=== PATIENT | female | born 1965 | race Caucasian/White ===

== ENCOUNTER 2018-09-21 11:51 | Emergency (ER) | payer MEDICAID ==
[~2018-09-21] VITALS: Ht 162.6 cm; Wt 120.0 kg
[~2018-09-21 11:51] MED LIST: DIPH1TAB PO
[2018-09-21] MEDS ORDERED: aspirin 81mg tab.chew PO ONE (12:10)
[2018-09-21 12:46] LABS: BASOPHILS % (AUTO) 0.3 % (0-1); EOSINOPHILS # (AUTO) 0.2 X10'3 (0-0.9); HEMATOCRIT 37.3 % (35.0-45.0); HEMOGLOBIN 12.6 g/dl (12.0-16.0); LYMPHOCYTES # (AUTO) 1.7 X10'3 (1.1-4.8); LYMPHOCYTES % (AUTO) 21.6 % (21-51); MEAN CORPUSCULAR HEMOGLOBIN 31.7 PG (27.0-31.0); MEAN CORPUSCULAR HGB CONC 33.8 g/dL (33.0-36.5); MEAN CORPUSCULAR VOLUME 93.7 FL (78-98); MEAN PLATELET VOLUME 8.9 FL (7.4-10.4); MONOCYTES # (AUTO) 0.5 X10'3 (0-0.9); MONOCYTES % (AUTO) 6.8 % (2-12); NEUTROPHILS # (AUTO) 5.6 X10'3 (1.8-7.7); NEUTROPHILS % (AUTO) 69.3 % (42-75); PLATELET COUNT 173 X10'3 (140-440); RED BLOOD COUNT 3.98 X10'6 (4.20-5.60); RED CELL DISTRIBUTION WIDTH 13.5 % (11.5-14.5); WHITE BLOOD COUNT 8.1 X10'3 (4.5-11.0)
[2018-09-21 13:05] LABS: ALANINE AMINOTRANSFERASE 36 U/L (12-78); ALBUMIN 2.8 G/DL (3.4-5.0); ALBUMIN/GLOBULIN RATIO 0.7 (1.1-1.5); ALKALINE PHOSPHATASE 254 IU/L (46-116); ANION GAP 8 (8-16); ASPARTATE AMINO TRANSFERASE 26 U/L (10-37); BILIRUBIN,TOTAL 0.4 MG/DL (0.1-1.0); BLOOD UREA NITROGEN 29 MG/DL (7-18); BUN/CREATININE RATIO 25.7 (6.6-38.0); CALCIUM 8.9 MG/DL (8.5-10.1); CHLORIDE 105 MMOL/L (99-107); CREATININE 1.13 MG/DL (0.40-0.90); GLUCOSE 342 MG/DL (70-104); POTASSIUM 4.6 MMOL/L (3.5-5.1); SODIUM 139 MMOL/L (135-145); TOTAL PROTEIN 6.9 G/DL (6.4-8.2); eGFR 50 ML/MIN
[2018-09-21 13:12] LABS: MAGNESIUM 1.9 MG/DL (1.5-2.4)
[2018-09-21] MEDS ORDERED: FURO-150 PO (14:23)
[2018-09-21] MEDS ORDERED: POTA10TA19 PO (14:23)
[2018-09-21 14:44] VITALS: BP 163/88
== END 2018-09-21 14:38 | disposition home or self-care (01) ==
LOC: ER 11:52
DX: R60.0 Localized edema (principal); R06.02 Shortness of breath; R06.2 Wheezing; Z79.899 Other long term (current) drug therapy
CPT/HCPCS: 36415; 71045; 80053; 83735; 83880; 84484; 85025; 99284

== ENCOUNTER 2019-01-19 15:41 | Emergency (ER) | payer MEDICAID ==
[~2019-01-19] VITALS: Ht 165.1 cm; Wt 105.3 kg
[2019-01-19] MEDS ORDERED: acetaminophen 325mg tablet PO ONE (16:00)
[2019-01-19] MEDS ORDERED: proCHLORperazine 10 MG/2 ml inj IV ONE (16:00)
[2019-01-19] MEDS ORDERED: normal saline 1000ml 1,000 ML IV ONE (16:00)
[2019-01-19] MEDS ORDERED: ketorolac trometh. 30mg/ml inj. IV ONE (16:00)
[2019-01-19] MEDS ORDERED: PRED20TA PO (17:20)
[2019-01-19] MEDS ORDERED: predniSONE 20 mg tablet PO ONE (17:20)
[2019-01-19 17:32] VITALS: BP 149/77
[2019-02-02] MEDS ORDERED: GABA600T13 PO (14:52)
[2019-02-02] MEDS ORDERED: LIRA0.6P2 SUBCUT (14:52)
[2019-02-02] MEDS ORDERED: LOSA50TA3 PO (14:52)
[2019-02-02] MEDS ORDERED: ATOR40TA PO (14:52)
[2019-02-02] MEDS ORDERED: LANTUS SQ (14:52)
[2019-02-02] MEDS ORDERED: FURO80TA87 PO (14:52)
[2019-02-02] MEDS ORDERED: PRED10TA23 PO (14:52)
== END 2019-01-19 17:34 | disposition home or self-care (01) ==
LOC: ER 15:42
DX: R51 Headache (principal); Z79.899 Other long term (current) drug therapy
CPT/HCPCS: 36415; 85651; 96374; 96375; 99283; J0780; J1885; J7030; J7512

== ENCOUNTER 2019-02-04 06:58 | Day surgery (SDC) | payer MEDICAID ==
[2019-02-02 15:04] LABS: BASOPHILS % (AUTO) 0.1 % (0-1); EOSINOPHILS % (AUTO) 0.4 % (0-6); LYMPHOCYTES # (AUTO) 1.9 X10'3 (1.1-4.8); LYMPHOCYTES % (AUTO) 15.6 % (21-51); MEAN CORPUSCULAR HEMOGLOBIN 30.1 PG (27.0-31.0); MEAN CORPUSCULAR HGB CONC 33.2 g/dL (33.0-36.5); MEAN CORPUSCULAR VOLUME 90.5 FL (78-98); MEAN PLATELET VOLUME 8.8 FL (7.4-10.4); MONOCYTES # (AUTO) 0.5 X10'3 (0-0.9); MONOCYTES % (AUTO) 4.3 % (2-12); NEUTROPHILS # (AUTO) 9.7 X10'3 (1.8-7.7); NEUTROPHILS % (AUTO) 79.6 % (42-75); PRE OP PLATELET COUNT 249 X10'3 (140-440); RED BLOOD COUNT 4.65 X10'6 (4.20-5.60); RED CELL DISTRIBUTION WIDTH 13.5 % (11.5-14.5)
[2019-02-02 15:04] LABS: CLARITY,URINE SLIGHTLY CLOUDY (Clear); COLOR,URINE YELLOW (Yellow); GLUCOSE, URINE >=1000 mg/dl (Neg); KETONES,URINE NEGATIVE (Neg); LEUKOCYTE ESTERASE ,URINE NEGATIVE (Neg); NITRITES, URINE NEGATIVE (Neg); OCCULT BLOOD,URINE LARGE (Neg); PH,URINE 5.5 (4.8-8.0); PROTEIN,URINE 100 mg/dl (Neg); UA COLLECTION TYPE CLN CATCH MIDSTREAM; UROBILINOGEN,URINE 0.2 E.U/dL (0.2-1.0)
[2019-02-02 15:10] LABS: BACTERIA,URINE 4+ /HPF (Neg); RBC,URINE 20-50 /HPF (0-2); SQUAMOUS EPITHELIAL CELL,UR FEW /LPF (FEW)
[2019-02-02 15:11] LABS: WBC CLUMPS,URINE MODERATE /HPF (NEGATIVE)
[2019-02-02 15:17] LABS: ALBUMIN 2.3 G/DL (3.4-5.0); ALBUMIN/GLOBULIN RATIO 0.6 (1.1-1.5); ALKALINE PHOSPHATASE 237 IU/L (46-116); BLOOD UREA NITROGEN 50 MG/DL (7-18); BUN/CREATININE RATIO 49.5 (6.6-38.0); CALCIUM 8.9 MG/DL (8.5-10.1); CHLORIDE 107 MMOL/L (99-107); CREATININE 1.01 MG/DL (0.40-0.90); HEMOGLOBIN A1C 10.3 % (4.5-6.2); PRE OP ALT 42 U/L (30-65); PRE OP ANION GAP 7 (8-16); PRE OP AST 22 U/L (10-37); PRE OP BILIRUB, TOTAL 0.4 MG/DL (0.0-1.0); PRE OP POTASSIUM 4.6 MMOL/L (3.4-5.1); PRE OP SODIUM 139 MMOL/L (135-145); TOTAL CARBON DIOXIDE 25.2 MMOL/L (24-32); TOTAL PROTEIN 6.2 G/DL (6.4-8.2); eGFR 57 ML/MIN
[2019-02-02 15:18] LABS: PRE OP GLUCOSE 420 MG/DL (70-104)
[~2019-02-04] VITALS: Ht 165.1 cm; Wt 119.2 kg
[2019-02-04] VITALS (8 sets, daily range): BP systolic 98–118; BP diastolic 58–73
[~2019-02-04 06:58] MED LIST changes: +ATOR40TA PO; -DIPH1TAB PO; +FURO80TA87 PO; +GABA600T13 PO; +LANTUS SQ; +LIRA0.6P2 SUBCUT; +LOSA50TA3 PO; +PRED10TA23 PO; +famotidine 20mg tablet PO ONE; +ringers solution, lacted 1,000 ML IV SCH
[2019-02-04] MEDS ORDERED: insulin glargine (Lantus) pen - multi-dose SQ ONE (07:25)
[2019-02-04] MEDS ORDERED: ringers solution, lacted 1,000 ML IV SCH (07:49)
[2019-02-04] MEDS ORDERED: morphine 4 MG/ML inj SYRINge IV PRN ×2 (07:50)
[2019-02-04] MEDS ORDERED: ondansetron/PF 4mg/2ml inj IV PRN (07:50)
[2019-02-04] MEDS ORDERED: proCHLORperazine 10 MG/2 ml inj IV PRN (07:50)
[2019-02-04] MEDS ORDERED: meperidine/PF 25mg/ml syringe IV PRN ×3 (07:50)
[2019-02-04] MEDS ORDERED: cefazolin/dext.iso 2gm/100 ML IV ONE (09:15)
[2019-02-04] MEDS ORDERED: LIDOcaine 1% 30ml preserv. free vial ONE (11:08)
[2019-02-04] MEDS ORDERED: epiNEPHrine 1 mg/ml inj ONE (11:08)
[2019-02-04] MEDS ORDERED: fentaNYL/PF 50MCG/1 ML 2ML syringe ONE (11:27)
[2019-02-04] MEDS ORDERED: MIDAZolam 5mg/5ml vial ONE (11:27)
--- NOTE | 2019-02-04 12:02 | NUR ---
Received from OR via [facility], accompanied by Anesthesiologist CARLOS and report given by Anesthesiolgist. Pt alert and responsive, no pain, VS stable, NC at 3L, pt resting comfortably, no drainage, incision to left tempral not drainingm, open to air, no sutures, dermabond.
--- NOTE | 2019-02-04 13:52 | NUR ---
Pt discharged by wheelchair to vehicle with son without incident. Pt alert and responsive, states understanding to all DC information. IV dc'd. Temporal site remains CDI. Belongings on or with patient. Hammer Beside brought pain meds to patient whom signed for receipt. Pt knows to follow up with surgeon in one week. No other issues stable for discharge.
== END 2019-02-04 13:52 | disposition home or self-care (01) ==
LOC: PAS 06:58
PROVIDERS: ATTEND Surgery
DX: G44.89 Other headache syndrome (principal); I10 Essential (primary) hypertension; E11.40 Type 2 diabetes mellitus with diabetic neuropathy, unspecified; E66.01 Morbid (severe) obesity due to excess calories; Z68.41 Body mass index [BMI] 40.0-44.9, adult; Z87.891 Personal history of nicotine dependence; Z85.43 Personal history of malignant neoplasm of ovary; Z86.14 Personal history of Methicillin resistant Staphylococcus aureus infection; Z79.899 Other long term (current) drug therapy; Z79.4 Long term (current) use of insulin; Z82.49 Family history of ischemic heart disease and other diseases of the circulatory system
CPT/HCPCS: 36415; 37609; 80053; 81001; 82948; 83036; 85025; 87077; 87088; 87186; J0171; J2001; J2250; J3010; J7120; A4215; A4618; A6258; A7000; J1815

== ENCOUNTER 2019-03-10 06:52 | Inpatient (IN) | payer MEDICAID ==
[~2019-03-10] VITALS: Ht 165.1 cm; Wt 118.0 kg
[~2019-03-10 06:52] MED LIST changes: -famotidine 20mg tablet PO ONE; -ringers solution, lacted 1,000 ML IV SCH
[2019-03-10] MEDS ORDERED: morphine 4 MG/ML inj SYRINge IV PRN (07:15)
[2019-03-10] MEDS ORDERED: normal saline 1000ML IV soln IVB ONE ×2 (07:15→07:45)
[2019-03-10] MEDS ORDERED: ondansetron/PF 4mg/2ml inj IV ONE (07:15)
[2019-03-10 07:38] LABS: BASOPHILS % (AUTO) 0.3 % (0-1); EOSINOPHILS # (AUTO) 0.1 X10'3 (0-0.9); EOSINOPHILS % (AUTO) 0.6 % (0-6); HEMATOCRIT 36.8 % (35.0-45.0); HEMOGLOBIN 12.1 g/dl (12.0-16.0); LYMPHOCYTES # (AUTO) 2.2 X10'3 (1.1-4.8); MEAN CORPUSCULAR HEMOGLOBIN 29.9 PG (27.0-31.0); MEAN CORPUSCULAR HGB CONC 32.8 g/dL (33.0-36.5); MEAN PLATELET VOLUME 9.4 FL (7.4-10.4); MONOCYTES # (AUTO) 0.9 X10'3 (0-0.9); MONOCYTES % (AUTO) 6.5 % (2-12); NEUTROPHILS # (AUTO) 11.3 X10'3 (1.8-7.7); NEUTROPHILS % (AUTO) 77.6 % (42-75); PLATELET COUNT 235 X10'3 (140-440); RED BLOOD COUNT 4.05 X10'6 (4.20-5.60); RED CELL DISTRIBUTION WIDTH 14.7 % (11.5-14.5); WHITE BLOOD COUNT 14.5 X10'3 (4.5-11.0)
[2019-03-10] MEDS ORDERED: fentaNYL/PF 50MCG/1 ML 2ML syringe IV ONE (07:45)
[2019-03-10 07:55] LABS: ALANINE AMINOTRANSFERASE 15 U/L (12-78); ALBUMIN 2.2 G/DL (3.4-5.0); ALBUMIN/GLOBULIN RATIO 0.5 (1.1-1.5); ALKALINE PHOSPHATASE 157 IU/L (46-116); ANION GAP 11 (8-16); ASPARTATE AMINO TRANSFERASE 12 U/L (10-37); BILIRUBIN,TOTAL 0.5 MG/DL (0.1-1.0); BLOOD UREA NITROGEN 37 MG/DL (7-18); CALCIUM 8.8 MG/DL (8.5-10.1); CHLORIDE 101 MMOL/L (99-107); CREATININE 1.61 MG/DL (0.40-0.90); GLUCOSE 434 MG/DL (70-104); LIPASE 115 U/L (73-393); POTASSIUM 4.6 MMOL/L (3.5-5.1); SODIUM 135 MMOL/L (135-145); TOTAL CARBON DIOXIDE 22.7 MMOL/L (24-32); eGFR 33 ML/MIN
[2019-03-10] MEDS ORDERED: piperacillin/tazo 3.375gm/50ml 50 ML IV ONE (08:55)
[2019-03-10 09:00] LABS: CLARITY,URINE TURBID (Clear); COLOR,URINE YELLOW (Yellow); GLUCOSE, URINE >=1000 mg/dl (Neg); KETONES,URINE NEGATIVE (Neg); LEUKOCYTE ESTERASE ,URINE NEGATIVE (Neg); NITRITES, URINE NEGATIVE (Neg); OCCULT BLOOD,URINE LARGE (Neg); PH,URINE 5.5 (4.8-8.0); PROTEIN,URINE 100 mg/dl (Neg); UA COLLECTION TYPE CLN CATCH MIDSTREAM; UROBILINOGEN,URINE 0.2 E.U/dL (0.2-1.0)
[2019-03-10 09:01] LABS: URINE HCG NEGATIVE (NEG)
[2019-03-10 09:06] LABS: SQUAMOUS EPITHELIAL CELL,UR MANY /LPF (FEW)
[2019-03-10 09:07] LABS: BACTERIA,URINE 3+ /HPF (Neg); WBC CLUMPS,URINE MANY /HPF (NEGATIVE); WBC,URINE TNTC /HPF (0-4)
[2019-03-10] MEDS ORDERED: acetaminophen 325mg tablet PO PRN ×2 (09:35)
[2019-03-10] MEDS ORDERED: mag hydrox/Alum hydrox/simeth 30ml oral suspension PO PRN (09:35)
[2019-03-10] MEDS ORDERED: magnesium 4gm in 100ml NS 100 ML IV PRN (09:35)
[2019-03-10] MEDS ORDERED: potassium CL 10mEq/100ml bag 100 ML IV PRN ×2 (09:35)
[2019-03-10] MEDS ORDERED: morphine 2 MG/ML inj. syringe IV PRN (09:35)
[2019-03-10] MEDS ORDERED: magnesium 2GM in 50ml NS 50 ML IV PRN (09:35)
[2019-03-10] MEDS ORDERED: magnesium hydroxide 30ml (MOM) UD suspension PO PRN (09:35)
[2019-03-10] MEDS ORDERED: magnesium Cl slow-release 64mg tablet PO PRN (09:35)
[2019-03-10] MEDS ORDERED: HYDROcodone/acetaminophen 5mg/325mg tablet PO PRN (09:35)
[2019-03-10] MEDS ORDERED: potassium Cl 20 mEq SR tablet PO PRN ×2 (09:35)
[2019-03-10] MEDS: normal saline 1000ml 1,000 ML IV SCH ×2 (10:51→19:24)
[2019-03-10] MEDS ORDERED: diatrozoate meglu/diatrozoate sod (37% iodine) 120ML oral solution PO SCH (12:10)
--- NOTE | 2019-03-10 12:35 | NUR ---
Received report and patient visualized on floor as I was going to lunch. Gloria will cover patient while on lunch.
[2019-03-10 12:45] VITALS: BP_SYST 104; BP_SYST 122; BP_DIAS 53; BP_DIAS 70
[2019-03-10] MEDS ORDERED: dextrose 50%-water 50ml dispensing syringe IV PRN ×2 (12:55)
[2019-03-10] MEDS ORDERED: glucagon, human recombinant 1mg kit SUBCUT PRN (12:55)
[2019-03-10] MEDS ORDERED: dextrose ORAL solution 15 GM/59 ML bottle PO PRN ×2 (12:55)
[2019-03-10] MEDS ORDERED: MESSAGE TO PHARMACY PO ONE (12:55)
--- NOTE | 2019-03-10 13:10 | NUR ---
Dr. Murillo is here to see patient and will continue to follow patient's care. Will continue to monitor.
[2019-03-10] MEDS: morphine 2 MG/ML inj. syringe IV PRN ×2 (13:23→17:42)
[2019-03-10] MEDS: insulin Lispro (HumaLOG) vial - multi-dose SQ SCH ×2 (13:28→18:44)
[2019-03-10] MEDS: diatr meglu/diatrizoate 30ml oral sol.-(3 dose) bottle PO SCH ×3 (13:37→15:14)
[2019-03-10] MEDS ORDERED: hydrALAZINE 20mg/ml inj. IV PRN (13:50)
[2019-03-10] MEDS ORDERED: ATOR20TA PO (14:04)
[2019-03-10] MEDS: ondansetron/PF 4mg/2ml inj IV PRN (14:39)
[2019-03-10] MEDS: piperacillin/tazo 3.375gm/50ml 50 ML IV SCH (16:19)
--- NOTE | 2019-03-10 17:30 | NUR ---
Dr. Darby called to request that I call Dr. Murillo to read results which I attempted, Read first line and then he stated that he still would like upper GI. Then attempted to read more and he said the first step would be an upper GI. Notified Dr. Darby of conversation who stated that Dr. Haley will do EGD tomorrow afternoon, will keep NPO until then. Will continue to monitor.
--- NOTE | 2019-03-10 18:30 | NUR ---
Problems reprioritized. Patient report given, questions answered & plan of care reviewed with Prudence RN. Patient resting in bed, denies needs
--- NOTE | 2019-03-10 18:48 | NUR ---
Patient in room [facility]. I have received report from Ernestine SHEPPARD and had the opportunity to ask questions and assume patient care. The patient is resting and denies having pain.
[2019-03-10 19:00] VITALS: BP 98/47
[2019-03-10] MEDS: insulin glargine (Lantus) pen - multi-dose SQ SCH (22:36)
[2019-03-11] VITALS (16 sets, daily range): BP systolic 97–138; BP diastolic 45–82
[2019-03-11] MEDS: piperacillin/tazo 3.375gm/50ml 50 ML IV SCH ×3 (00:42→16:55)
--- NOTE | 2019-03-11 01:19 | NUR ---
Attempted to bladder scan patient and she has refused to get up to the toilet. The bladder has 307 ml of urine and she denies having any discomfort. There is an order to have FC placed in if patient has greater that 200ml. Patient refused to have a FC put in and charge nurse was notified. Patient educated the risks of having a full bladder.
[2019-03-11] MEDS: normal saline 1000ml 1,000 ML IV SCH ×4 (02:04→22:08)
--- NOTE | 2019-03-11 04:15 | NUR ---
Patient is still refusing to get up to the toilet to void. Attempted to place a FC per doctors order and she is non compliant with the plan.
[2019-03-11 05:28] LABS: BASOPHILS # (AUTO) 0.1 X10'3 (0-0.2); BASOPHILS % (AUTO) 0.4 % (0-1); EOSINOPHILS # (AUTO) 0.3 X10'3 (0-0.9); EOSINOPHILS % (AUTO) 2.4 % (0-6); HEMATOCRIT 30.2 % (35.0-45.0); LYMPHOCYTES # (AUTO) 3.1 X10'3 (1.1-4.8); LYMPHOCYTES % (AUTO) 22.1 % (21-51); MEAN CORPUSCULAR HEMOGLOBIN 30.6 PG (27.0-31.0); MEAN CORPUSCULAR HGB CONC 33.1 g/dL (33.0-36.5); MEAN CORPUSCULAR VOLUME 92.5 FL (78-98); MEAN PLATELET VOLUME 9.3 FL (7.4-10.4); MONOCYTES # (AUTO) 1.1 X10'3 (0-0.9); MONOCYTES % (AUTO) 7.6 % (2-12); NEUTROPHILS # (AUTO) 9.5 X10'3 (1.8-7.7); NEUTROPHILS % (AUTO) 67.5 % (42-75); PLATELET COUNT 180 X10'3 (140-440); RED BLOOD COUNT 3.26 X10'6 (4.20-5.60); RED CELL DISTRIBUTION WIDTH 14.1 % (11.5-14.5); WHITE BLOOD COUNT 14.1 X10'3 (4.5-11.0)
[2019-03-11 05:44] LABS: ALBUMIN 1.8 G/DL (3.4-5.0); ANION GAP 7 (8-16); BLOOD UREA NITROGEN 35 MG/DL (7-18); BUN/CREATININE RATIO 25.7 (6.6-38.0); CALCIUM 7.8 MG/DL (8.5-10.1); CHLORIDE 109 MMOL/L (99-107); CREATININE 1.36 MG/DL (0.40-0.90); GLUCOSE 239 MG/DL (70-104); MAGNESIUM 1.7 MG/DL (1.5-2.4); POTASSIUM 4.1 MMOL/L (3.5-5.1); SODIUM 141 MMOL/L (135-145); TOTAL CARBON DIOXIDE 25.4 MMOL/L (24-32); eGFR 41 ML/MIN
--- NOTE | 2019-03-11 06:27 | NUR ---
Patient in room [facility] 357. I have received report from VALARIE Fitzgerald and had the opportunity to ask questions and assume patient care.
--- NOTE | 2019-03-11 06:33 | NUR ---
Problems reprioritized. Patient report given, questions answered & plan of care reviewed with Emerald SHEPPARD.
[2019-03-11] MEDS: K and/or MAG REPLACEMENT MC SCH (07:00)
[2019-03-11] MEDS: insulin Lispro (HumaLOG) vial - multi-dose SQ SCH ×3 (09:01→19:26)
[2019-03-11] MEDS ORDERED: fentaNYL/PF 50MCG/1 ML 2ML syringe ONE (13:28)
[2019-03-11] MEDS ORDERED: MIDAZolam 5mg/5ml vial ONE (13:28)
[2019-03-11] MEDS ORDERED: LIDOcaine Viscous 15ml cup ONE (13:28)
[2019-03-11] MEDS ORDERED: pantoprazole 40 MG vial IV ONE (13:45)
--- NOTE | 2019-03-11 14:17 | NUR ---
Patient to GI lab via wheelchair with x1 staff. Patient alert and oriented at this time.
--- NOTE | 2019-03-11 16:11 | NUR ---
DM Consult: Pt admit w/ nausea/vomiting and abdominal pain. CT shows pneumobilia w/ r/o hepatoenteric fistula in addition to DX UTI and LINO per MD note. Remains NPO at this time. LBM 03/09. Pt seen by RD for written/verbal DM ed w/ RD contact information provided. Pt reports taking metformin and victoza for GLU coverage and checks GLU TID. Pt home med list shows Lantus and no metformin. Currently in EMR shows T1DM but all prior admits show pt T2DM which is likely more accurate given home meds. RD encouraged attending CDE course, establishing w/ slitter and rewinder if able, and for pt to talk w/ PCP regarding meal replacement coverage. SHAJI d/w RN regarding MD opinion on possibility of gastroparesis given pt hx/A1C. Will monitor for diet advancement, additional GI DX, and diet tolerance once PO. Rec: 1. advance diet per MD to carb controlled 2. IF gastroparesis DX per MD; low-residue diet addition once PO and pt will need diet ed 3. routine bowel care 4. wt per rx Addendum: 03/11/19 at [address] Amended: Links added.
--- NOTE | 2019-03-11 16:15 | NUR ---
Patient back to room from GI. Patient is in no apparent distress at this time.
--- NOTE | 2019-03-11 18:18 | NUR ---
Problems reprioritized. Patient report given, questions answered & plan of care reviewed with VALARIE Fitzgerald.
--- NOTE | 2019-03-11 18:22 | NUR ---
Patient in room [facility] 357. I have received report from Emerald SHEPPARD and had the opportunity to ask questions and assume patient care.
[2019-03-11] MEDS: morphine 2 MG/ML inj. syringe IV PRN (19:17)
[2019-03-11] MEDS: lactobacillus rhamnosus 10,000 MMU CELLS/CAPSULE PO SCH (19:31)
[2019-03-11] MEDS: pantoprazole 40MG/NS 100ML BAG 100 ML IV SCH (22:08)
[2019-03-11] MEDS: insulin glargine (Lantus) pen - multi-dose SQ SCH (22:16)
[2019-03-12] VITALS: BP 111/52
[2019-03-12] MEDS: piperacillin/tazo 3.375gm/50ml 50 ML IV SCH ×4 (01:06→23:59)
[2019-03-12] MEDS: pantoprazole 40MG/NS 100ML BAG 100 ML IV SCH ×5 (02:08→21:00)
[2019-03-12 05:21] LABS: BASOPHILS % (AUTO) 0.5 % (0-1); EOSINOPHILS # (AUTO) 0.4 X10'3 (0-0.9); EOSINOPHILS % (AUTO) 4.3 % (0-6); HEMATOCRIT 29.6 % (35.0-45.0); HEMOGLOBIN 9.9 g/dl (12.0-16.0); LYMPHOCYTES # (AUTO) 2.5 X10'3 (1.1-4.8); LYMPHOCYTES % (AUTO) 27.7 % (21-51); MEAN CORPUSCULAR HEMOGLOBIN 30.6 PG (27.0-31.0); MEAN CORPUSCULAR HGB CONC 33.6 g/dL (33.0-36.5); MEAN CORPUSCULAR VOLUME 91.1 FL (78-98); MEAN PLATELET VOLUME 9.3 FL (7.4-10.4); MONOCYTES # (AUTO) 0.7 X10'3 (0-0.9); MONOCYTES % (AUTO) 7.2 % (2-12); NEUTROPHILS # (AUTO) 5.4 X10'3 (1.8-7.7); NEUTROPHILS % (AUTO) 60.3 % (42-75); PLATELET COUNT 176 X10'3 (140-440); RED BLOOD COUNT 3.25 X10'6 (4.20-5.60); RED CELL DISTRIBUTION WIDTH 14.5 % (11.5-14.5)
[2019-03-12 05:49] LABS: ALBUMIN 1.8 G/DL (3.4-5.0); ANION GAP 10 (8-16); BLOOD UREA NITROGEN 25 MG/DL (7-18); BUN/CREATININE RATIO 22.9 (6.6-38.0); CALCIUM 7.9 MG/DL (8.5-10.1); CHLORIDE 113 MMOL/L (99-107); CREATININE 1.09 MG/DL (0.40-0.90); GLUCOSE 164 MG/DL (70-104); MAGNESIUM 1.9 MG/DL (1.5-2.4); POTASSIUM 3.8 MMOL/L (3.5-5.1); SODIUM 145 MMOL/L (135-145); TOTAL CARBON DIOXIDE 22.3 MMOL/L (24-32); eGFR 52 ML/MIN
[2019-03-12] MEDS: morphine 2 MG/ML inj. syringe IV PRN ×3 (05:50→23:57)
--- NOTE | 2019-03-12 06:35 | NUR ---
Patient in room [facility] 357. I have received report from VALARIE Fitzgerald and had the opportunity to ask questions and assume patient care.
--- NOTE | 2019-03-12 06:36 | NUR ---
Problems reprioritized. Patient report given, questions answered & plan of care reviewed with Emerald SHEPPARD. Patient is having discomfort with stomach pain and is awaiting to be tranported to another hospital.
[2019-03-12 07:00] VITALS: BP 134/63
[2019-03-12] MEDS: K and/or MAG REPLACEMENT MC SCH (07:18)
[2019-03-12] MEDS: lactobacillus rhamnosus 10,000 MMU CELLS/CAPSULE PO SCH ×2 (07:29→19:59)
[2019-03-12] MEDS: normal saline 1000ml 1,000 ML IV SCH ×2 (07:50→17:25)
[2019-03-12] MEDS: insulin Lispro (HumaLOG) vial - multi-dose SQ SCH ×2 (07:55→13:24)
[2019-03-12 11:00] VITALS: BP 161/72
[2019-03-12] MEDS: ondansetron/PF 4mg/2ml inj IV PRN (13:26)
--- NOTE | 2019-03-12 17:30 | NUR ---
Student documentation: I have reviewed and agree with all interventions, assessments performed and documented by SN Har[facility].
--- NOTE | 2019-03-12 18:53 | NUR ---
Problems reprioritized. Patient report given, questions answered & plan of care reviewed with VALARIE Mccracken.
[2019-03-12 20:00] VITALS: BP 122/65
[2019-03-12] MEDS: insulin glargine (Lantus) pen - multi-dose SQ SCH (22:11)
[2019-03-13] VITALS: BP 139/70
[2019-03-13] MEDS: pantoprazole 40MG/NS 100ML BAG 100 ML IV SCH ×3 (02:48→11:00)
[2019-03-13] MEDS: normal saline 1000ml 1,000 ML IV SCH (04:16)
[2019-03-13 06:17] LABS: BASOPHILS % (AUTO) 0.5 % (0-1); EOSINOPHILS # (AUTO) 0.4 X10'3 (0-0.9); EOSINOPHILS % (AUTO) 5.7 % (0-6); HEMATOCRIT 29.8 % (35.0-45.0); HEMOGLOBIN 9.8 g/dl (12.0-16.0); LYMPHOCYTES % (AUTO) 32.7 % (21-51); MEAN CORPUSCULAR HEMOGLOBIN 30.6 PG (27.0-31.0); MEAN CORPUSCULAR VOLUME 92.6 FL (78-98); MEAN PLATELET VOLUME 9.3 FL (7.4-10.4); MONOCYTES # (AUTO) 0.5 X10'3 (0-0.9); MONOCYTES % (AUTO) 8.6 % (2-12); NEUTROPHILS # (AUTO) 3.3 X10'3 (1.8-7.7); NEUTROPHILS % (AUTO) 52.5 % (42-75); PLATELET COUNT 162 X10'3 (140-440); RED BLOOD COUNT 3.22 X10'6 (4.20-5.60); RED CELL DISTRIBUTION WIDTH 14.1 % (11.5-14.5); WHITE BLOOD COUNT 6.2 X10'3 (4.5-11.0)
--- NOTE | 2019-03-13 06:30 | NUR ---
Patient in room [facility] 357. I have received report from HORACE SHEPPARD and had the opportunity to ask questions and assume patient care.
[2019-03-13 06:46] LABS: ALBUMIN 1.8 G/DL (3.4-5.0); ANION GAP 14 (8-16); BLOOD UREA NITROGEN 15 MG/DL (7-18); CALCIUM 8.5 MG/DL (8.5-10.1); CHLORIDE 115 MMOL/L (99-107); CREATININE 0.88 MG/DL (0.40-0.90); GLUCOSE 117 MG/DL (70-104); MAGNESIUM 1.9 MG/DL (1.5-2.4); POTASSIUM 3.5 MMOL/L (3.5-5.1); SODIUM 148 MMOL/L (135-145); TOTAL CARBON DIOXIDE 19.3 MMOL/L (24-32); eGFR 67 ML/MIN
[2019-03-13 08:00] VITALS: BP 142/55
[2019-03-13] MEDS: lactobacillus rhamnosus 10,000 MMU CELLS/CAPSULE PO SCH (08:00)
[2019-03-13] MEDS: K and/or MAG REPLACEMENT MC SCH (08:00)
[2019-03-13] MEDS ORDERED: sodium chloride 0.45% 1,000 ML IV SCH (09:15)
[2019-03-13] MEDS: piperacillin/tazo 3.375gm/50ml 50 ML IV SCH ×2 (09:33→16:00)
[2019-03-13 11:00] VITALS: BP 131/80
[2019-03-13] MEDS: morphine 2 MG/ML inj. syringe IV PRN (11:09)
--- NOTE | 2019-03-13 17:56 | NUR ---
Problems reprioritized. Patient report given, questions answered & plan of care reviewed with EARL SHEPPARD.
--- NOTE | 2019-03-13 18:17 | NUR ---
Patient in room [facility] 357. I have received report from VALARIE WELLINGTON and had the opportunity to ask questions and assume patient care. PT IN BED, NO COMPLAINTS. ALERT AND ORIENTED. WAITING FOR TRANSPORT, RN ATTEMPTED TO CALL REPORT X2 UNABLE TO REACH RECEIVING RN AT [facility] [place]. Addendum: 03/13/19 at 1818 by Sid Hidalgo RN Amended: Links added.
[2019-03-13 18:20] VITALS: BP 131/80
--- NOTE | 2019-03-13 18:45 | NUR ---
TRANSFERRING PAPERWORK FAXED TO PER VALARIE WELLINGTON REPORT CALLED TO [facility] [place] . VALARIE FLETCHER. PT IS GOING TO ROOM [id number]. [facility] LEAVING WITH PT NOW ETA ABOUT 3 HRS. PT HAS ALL BELONGINGS PACKED AND READY TO GO. PT IS ALERT AND ORIENTED, VSS Addendum: 03/13/19 at 1858 by Sid Hidalgo RN Amended: Links added.
[2019-03-17 09:01] LABS: OCCULT BLOOD STOOL POSITIVE (Neg)
== END 2019-03-13 18:58 | disposition short-term general hospital (02) | DRG 241 ==
LOC: ER 06:53 → SUR 3N 12:42
PROVIDERS: ADMIT Hospitalist; ATTEND Internal Medicine
PROC: 0DB68ZX Excision of Stomach, Via Natural or Artificial Opening Endoscopic, Diagnostic (ICD-10-PCS; principal; 2019-03-11)
DX: K29.00 Acute gastritis without bleeding (principal); N17.9 Acute kidney failure, unspecified; E11.42 Type 2 diabetes mellitus with diabetic polyneuropathy; E11.65 Type 2 diabetes mellitus with hyperglycemia; D64.9 Anemia, unspecified; E78.00 Pure hypercholesterolemia, unspecified; K20.9 Esophagitis, unspecified; N39.0 Urinary tract infection, site not specified; K83.8 Other specified diseases of biliary tract; E78.5 Hyperlipidemia, unspecified; I10 Essential (primary) hypertension; K80.20 Calculus of gallbladder without cholecystitis without obstruction; Z79.4 Long term (current) use of insulin; Z79.899 Other long term (current) drug therapy; Z90.710 Acquired absence of both cervix and uterus; Z98.891 History of uterine scar from previous surgery
CPT/HCPCS: 36415; 43239; 74176; 80048; 80053; 81001; 81025; 82272; 82948; 83690; 83735; 85025; 87081; 96365; 96375; 99152; 99285; A4620; C9113; G0378; J1815; J2250; J2270; J2405; J2543; J3010; J7030; J7040; Q9963

== ENCOUNTER 2019-03-17 18:03 | Inpatient (IN) | payer MEDICAID ==
[~2019-03-17] VITALS: Ht 162.6 cm; Wt 118.2 kg
[~2019-03-17 18:03] MED LIST changes: +ATOR20TA PO; -ATOR40TA PO; -PRED10TA23 PO
--- NOTE | 2019-03-17 23:39 | NUR ---
pt arrived from [facility] via ambulance, pt ambulated to bed, performed skin check with Hannah SHEPPARD, pt states her hand feels swollen, pt does has some edema and redness to L. hand as well as some pitting edema to BLE, checked pts BS:157, VS: T:98.1, HR:87, RR:16, O2:96 on RA, B/P:161/74, pt is alert and orientedx4, pt states some back pain from the long ambulance drive.
[2019-03-17 23:46] VITALS: BP 161/74
--- NOTE | 2019-03-17 23:52 | NUR ---
no appointment at the present time Addendum: 03/17/19 at 6404 by Hannah Keith RN Amended: Links added.
[2019-03-18] MEDS ORDERED: normal saline 1000ml 1,000 ML IV SCH (00:56)
[2019-03-18] MEDS ORDERED: insulin Lispro (HumaLOG) vial - multi-dose SQ SCH (01:00)
[2019-03-18] MEDS ORDERED: MESSAGE TO PHARMACY PO ONE (01:00)
[2019-03-18] MEDS ORDERED: glucagon, human recombinant 1mg kit SUBCUT PRN (01:00)
[2019-03-18] MEDS ORDERED: dextrose 50%-water 50ml dispensing syringe IV PRN ×2 (01:00)
[2019-03-18] MEDS ORDERED: dextrose ORAL solution 15 GM/59 ML bottle PO PRN ×2 (01:00)
[2019-03-18] MEDS ORDERED: acetaminophen 325mg tablet PO PRN (01:00)
[2019-03-18] MEDS ORDERED: ondansetron/PF 4mg/2ml inj IV PRN (01:00)
[2019-03-18] MEDS ORDERED: mag hydrox/Alum hydrox/simeth 30ml oral suspension PO PRN (01:00)
[2019-03-18] MEDS ORDERED: magnesium hydroxide 30ml (MOM) UD suspension PO PRN (01:00)
--- NOTE | 2019-03-18 06:08 | NUR ---
Gave report to Marcelina SHEPPARD pt is resting on RA NS running@60mL/hr in no apparent distress, call light and items of freq use within reach.
--- NOTE | 2019-03-18 06:24 | NUR ---
Patient in room [facility] 350. I have received report from Claudette and had the opportunity to ask questions and assume patient care.
--- NOTE | 2019-03-18 06:24 | NUR ---
Patient in room [facility] 350. I have received report from VALARIE HAJI and had the opportunity to ask questions and assume patient care.
--- NOTE | 2019-03-18 06:37 | NUR ---
NOTIFIED DR. AMANDA THAT PATIENT HAS NO LABS ORDERED FOR TODAY. DR AMANDA AWARE AND DOES NOT WANT LABS ORDERED AT THIS TIME.
[2019-03-18 07:01] VITALS: BP 141/58
[2019-03-18] MEDS: gabapentin 300mg capsule PO SCH ×2 (07:25→13:52)
[2019-03-18] MEDS ORDERED: losartan 50mg tablet PO SCH (08:00)
[2019-03-18] MEDS ORDERED: pantoprazole 40 MG vial IV SCH (08:00)
[2019-03-18 10:02] LABS: BASOPHILS % (AUTO) 0.4 % (0-1); EOSINOPHILS # (AUTO) 0.6 X10'3 (0-0.9); EOSINOPHILS % (AUTO) 8.5 % (0-6); HEMATOCRIT 31.5 % (35.0-45.0); HEMOGLOBIN 10.6 g/dl (12.0-16.0); LYMPHOCYTES # (AUTO) 1.8 X10'3 (1.1-4.8); LYMPHOCYTES % (AUTO) 26.7 % (21-51); MEAN CORPUSCULAR HEMOGLOBIN 30.6 PG (27.0-31.0); MEAN CORPUSCULAR HGB CONC 33.6 g/dL (33.0-36.5); MEAN CORPUSCULAR VOLUME 91.1 FL (78-98); MEAN PLATELET VOLUME 8.3 FL (7.4-10.4); MONOCYTES # (AUTO) 0.5 X10'3 (0-0.9); MONOCYTES % (AUTO) 8.1 % (2-12); NEUTROPHILS # (AUTO) 3.8 X10'3 (1.8-7.7); NEUTROPHILS % (AUTO) 56.3 % (42-75); PLATELET COUNT 194 X10'3 (140-440); RED BLOOD COUNT 3.46 X10'6 (4.20-5.60); RED CELL DISTRIBUTION WIDTH 14.5 % (11.5-14.5); WHITE BLOOD COUNT 6.8 X10'3 (4.5-11.0)
[2019-03-18 10:25] LABS: ALANINE AMINOTRANSFERASE 11 U/L (12-78); ALBUMIN/GLOBULIN RATIO 0.5 (1.1-1.5); ALKALINE PHOSPHATASE 139 IU/L (46-116); ANION GAP 10 (8-16); ASPARTATE AMINO TRANSFERASE 12 U/L (10-37); BILIRUBIN,TOTAL 0.4 MG/DL (0.1-1.0); BLOOD UREA NITROGEN 3 MG/DL (7-18); CHLORIDE 111 MMOL/L (99-107); GLUCOSE 199 MG/DL (70-104); POTASSIUM 3.2 MMOL/L (3.5-5.1); SODIUM 145 MMOL/L (135-145); TOTAL CARBON DIOXIDE 24.1 MMOL/L (24-32); TOTAL PROTEIN 6.1 G/DL (6.4-8.2)
[2019-03-18 10:36] LABS: BUN/CREATININE RATIO 3.4 (6.6-38.0); CREATININE 0.88 MG/DL (0.40-0.90); eGFR 67 ML/MIN
[2019-03-18] MEDS ORDERED: magnesium Cl slow-release 64mg tablet PO PRN (11:00)
[2019-03-18] MEDS ORDERED: magnesium 4gm in 100ml NS 100 ML IV PRN (11:00)
[2019-03-18] MEDS ORDERED: potassium Cl 20 mEq SR tablet PO PRN (11:00)
[2019-03-18] MEDS ORDERED: potassium CL 10mEq/100ml bag 100 ML IV PRN (11:00)
[2019-03-18] MEDS: potassium Cl 20 mEq SR tablet PO PRN ×2 (11:10→15:32)
[2019-03-18] MEDS ORDERED: furosemide 20MG tablet PO ONE (11:15)
[2019-03-18] MEDS ORDERED: PANT-47 PO (11:17)
[2019-03-18 11:23] VITALS: BP 182/84
--- NOTE | 2019-03-18 11:34 | NUR ---
DM consult: Patient with A1c 10.3 recently admitted and seen by SHAJI 03/11/19 provided with written and verbal DM education with referral to outpatient DM class and RD contact information. No further education warranted at this time. Diet just advanced to heart healthy CHO controlled from clear liquids, pending documentation of PO intake. Pending H&P. LBM 03/18. Will continue to follow. Addendum: 03/18/19 at [address] Amended: Links added.
--- NOTE | 2019-03-18 11:41 | NUR ---
Notified Dr. Godinez of patient's BP of 182/84 with HR 88. No new orders except to administer lasix as ordered.
--- NOTE | 2019-03-18 16:39 | NUR ---
DISCUSSED DISCHARGE PAPERS. PATIENT VERBALIZED UNDERSTANDING OF TEACHING. PATIENT WAS A&O, NO COMPLAINTS OR SIGNS AND SYMPTOMS OF DISTRESS. PATIENT LEFT WITH PERSONAL BELONGINGS.
--- NOTE | 2019-03-18 16:49 | NUR ---
Student documentation: I have reviewed and agree with all interventions, assessments performed and documented by SN CATINA. Student Medication Administration: For this medication-pass time frame, all medication were reviewed, dispensed, administered and documented per hospital policy by SN CATINA.
[2019-03-18] MEDS ORDERED: insulin glargine (Lantus) pen - multi-dose SQ SCH (21:00)
== END 2019-03-18 16:29 | disposition home or self-care (01) | DRG 241 ==
LOC: SUR 3N 23:14
PROVIDERS: ADMIT Family Medicine; ATTEND Family Medicine
DX: K29.70 Gastritis, unspecified, without bleeding (principal); E43 Unspecified severe protein-calorie malnutrition; E11.65 Type 2 diabetes mellitus with hyperglycemia; E66.01 Morbid (severe) obesity due to excess calories; R74.0 Nonspecific elevation of levels of transaminase and lactic acid dehydrogenase [LDH]; E87.6 Hypokalemia; I10 Essential (primary) hypertension; Z79.4 Long term (current) use of insulin; Z85.42 Personal history of malignant neoplasm of other parts of uterus; Z68.41 Body mass index [BMI] 40.0-44.9, adult
CPT/HCPCS: 36415; 80053; 82948; 85025; 87081; C9113; G0378; J1815; J7030

== ENCOUNTER 2019-07-01 11:52 | Emergency (ER) | payer MEDICAID ==
[~2019-07-01] VITALS: Ht 165.1 cm; Wt 121.3 kg
[~2019-07-01 11:52] MED LIST changes: +PANT-47 PO
[2019-07-01 12:05] VITALS: BP 144/75
[2019-07-01] MEDS ORDERED: SULF1TAB49 PO (14:01)
[2019-07-01] MEDS ORDERED: ketorolac trometh inj. 60 MG/2 ML VIAL IM ONE (14:05)
== END 2019-07-01 14:48 | disposition home or self-care (01) ==
LOC: ER 11:52
DX: L02.214 Cutaneous abscess of groin (principal); E11.42 Type 2 diabetes mellitus with diabetic polyneuropathy; E78.00 Pure hypercholesterolemia, unspecified; I10 Essential (primary) hypertension; Z98.890 Other specified postprocedural states; Z90.710 Acquired absence of both cervix and uterus; Z79.899 Other long term (current) drug therapy; Z79.4 Long term (current) use of insulin
CPT/HCPCS: 10060; 96372; 99283; J1885